=== PATIENT | female | born 1930 | race Caucasian/White ===

== ENCOUNTER 2018-11-18 17:34 | Emergency (ER) | payer MEDICARE ==
[~2018-11-18] VITALS: Ht 172.7 cm; Wt 113.4 kg
[~2018-11-18 17:34] MED LIST: ALPR.5 PO; ALUM-MAG HYDRO360 ML PO; AMLO10 PO; ASPI325EC PO; ASPIRIN; ATEN50; ATEN50 PO; Aranesp40 MCG/11 SC; BENA20; BENA20 PO; BENADRYL; BISACODYL; CALCAVITDA PO; CIPRO; CITA20 PO; CITALOPRAM; DOCU100 PO; FLUO20; FURO40 PO; HYDACE5 PO; HYDR1TAB94 PO; HYDROCODONE; IMODIUM; LASIX; LAVAP17G PO; MAGCHL64ER PO; METO2.5 PO; MILK; Micro-K10 MEQ PO; NAPR375 PO; NAPR500 PO; NAPROXEN; NYST100TC TOP; OMEP20ER PO; OMEPRAZOLE; POTASSIUM; POTCHL10ER PO; POTPHO PO; Prilosec Otc20 MG; Prilosec20 MG PO; RANI150 PO; SUCR1SU PO; TAMS.4ER PO; TEMA30; TEMA30 PO; XANAX
[2018-11-18] MEDS ORDERED: FURO40 PO (18:15)
[2018-11-18 18:16] LABS: BASOPHILS ABSOLUTE AUTO 0.08 K/mm3 (0.00-0.23); BASOPHILS PERCENT AUTO 1 % (0-2); EOSINOPHILS ABSOLUTE AUTO 0.12 K/mm3 (0.00-0.68); EOSINOPHILS PERCENT AUTO 1 % (0-6); Hematocrit 40.2 % (33.0-51.0); Hemoglobin 12.1 g/dL (11.5-16.0); IMMATURE GRAN ABSOLUTE AUTO 0.15 K/mm3 (0.00-0.10); IMMATURE GRAN PERCENT AUTO 1 % (0-1); LYMPHOCYTES ABSOLUTE AUTO 5.36 K/mm3 (0.84-5.20); LYMPHOCYTES PERCENT AUTO 33 % (21-46); MONOCYTES ABSOLUTE AUTO 1.28 K/mm3 (0.16-1.47); MONOCYTES PERCENT AUTO 8 % (4-13); Mean Corpuscular HGB 26.1 pg (26.0-34.0); Mean Corpuscular HGB Conc 30.1 g/dL (31.5-36.5); Mean Corpuscular Volume 87 fL (80-100); NEUTROPHILS ABSOLUTE AUTO 9.04 K/mm3 (1.96-9.15); NEUTROPHILS PERCENT AUTO 57 % (41-73); Platelet Count 280 K/mm3 (150-400); RDW Coefficient Variation 16.4 % (11.7-14.2); RDW Standard Deviation 51.6 fL (35.1-46.3); Red Blood Cell Count 4.64 M/mm3 (3.80-5.20); White Blood Cell Count 16.03 K/mm3 (4.00-11.30)
[2018-11-18] MEDS ORDERED: CETI5 PO (18:16)
[2018-11-18 18:27] LABS: Albumin/Globulin Ratio 0.6 (0.8-1.8); Bilirubin, Total 0.4 mg/dL (0.1-1.0); Bun/Creatinine Ratio 21.8 (12.0-20.0); Calcium, Blood 8.8 mg/dL (8.5-10.1); Creatinine, Blood 1.24 mg/dL (0.40-1.00); Globulin, Blood 5.1 g/dL (2.2-4.0); Potassium, Blood 3.8 mmol/L (3.5-5.5); Total Protein, Blood 8.1 g/dL (6.4-8.2)
[2018-11-18] MEDS ORDERED: ONDA4ODT MM (20:11)
== END 2018-11-18 21:13 | disposition home or self-care (01) ==
LOC: ER 17:34
PROVIDERS: Emergency Medicine
DX: R07.89 Other chest pain (principal); R11.0 Nausea; I12.9 Hypertensive chronic kidney disease with stage 1 through stage 4 chronic kidney disease, or unspecified chronic kidney disease; N18.9 Chronic kidney disease, unspecified; F03.90 Unspecified dementia, unspecified severity, without behavioral disturbance, psychotic disturbance, mood disturbance, and anxiety; F32.9 Major depressive disorder, single episode, unspecified; Z87.11 Personal history of peptic ulcer disease; Z79.899 Other long term (current) drug therapy
CPT/HCPCS: 71045; 80053; 83690; 84484; 85025; 93005; 93010; 99284-25; A9270-GY

== ENCOUNTER 2018-12-24 02:04 | Emergency (ER) | payer MEDICARE ==
[~2018-12-24] VITALS: Ht 160 cm; Wt 90.7 kg
[~2018-12-24 02:04] MED LIST changes: +CETI5 PO; +ONDA4ODT MM
[2018-12-24] MEDS ORDERED: PRED20 PO (02:21)
[2018-12-24 02:47] LABS: BASOPHILS ABSOLUTE AUTO 0.06 K/mm3 (0.00-0.23); BASOPHILS PERCENT AUTO 0 % (0-2); EOSINOPHILS ABSOLUTE AUTO 0.39 K/mm3 (0.00-0.68); EOSINOPHILS PERCENT AUTO 3 % (0-6); Hematocrit 37.9 % (33.0-51.0); Hemoglobin 11.2 g/dL (11.5-16.0); IMMATURE GRAN ABSOLUTE AUTO 0.08 K/mm3 (0.00-0.10); IMMATURE GRAN PERCENT AUTO 1 % (0-1); LYMPHOCYTES ABSOLUTE AUTO 4.64 K/mm3 (0.84-5.20); LYMPHOCYTES PERCENT AUTO 32 % (21-46); MONOCYTES ABSOLUTE AUTO 1.16 K/mm3 (0.16-1.47); MONOCYTES PERCENT AUTO 8 % (4-13); Mean Corpuscular HGB 26.4 pg (26.0-34.0); Mean Corpuscular HGB Conc 29.6 g/dL (31.5-36.5); Mean Corpuscular Volume 89 fL (80-100); Mean Platelet Volume 9.7 fL (9.1-12.4); NEUTROPHILS ABSOLUTE AUTO 8.28 K/mm3 (1.96-9.15); NEUTROPHILS PERCENT AUTO 57 % (41-73); Platelet Count 323 K/mm3 (150-400); RDW Coefficient Variation 16.1 % (11.7-14.2); RDW Standard Deviation 52.7 fL (35.1-46.3); Red Blood Cell Count 4.25 M/mm3 (3.80-5.20); White Blood Cell Count 14.61 K/mm3 (4.00-11.30)
[2018-12-24 03:07] LABS: Alanine Aminotransfer (ALT/SGP 16 U/L (12-78); Albumin, Blood 2.5 g/dL (3.4-5.0); Albumin/Globulin Ratio 0.6 (0.8-1.8); Alk Phos 68 U/L (50-136); Anion Gap 5 mmol/L (6-16); Aspartate Aminotrans (AST/SGOT 17 U/L (12-37); Bilirubin, Total 0.3 mg/dL (0.1-1.0); Blood Urea Nitrogen 26 mg/dL (8-24); Bun/Creatinine Ratio 19.7 (12.0-20.0); CO2, Blood 32 mmol/L (21-32); Calcium, Blood 8.4 mg/dL (8.5-10.1); Chloride, Blood 104 mmol/L (98-108); Creatinine, Blood 1.32 mg/dL (0.40-1.00); Globulin, Blood 4.5 g/dL (2.2-4.0); Glomerular Filtration Rate 40 (60-); Glucose, Blood 104 mg/dL (70-99); Potassium, Blood 4.1 mmol/L (3.5-5.5); Sodium, Blood 141 mmol/L (136-145); Troponin I <0.015 ng/mL (0.000-0.040)
== END 2018-12-24 05:30 | disposition home or self-care (01) ==
LOC: ER 02:04
PROVIDERS: Emergency Medicine
DX: I48.0 Paroxysmal atrial fibrillation (principal); I10 Essential (primary) hypertension; F32.9 Major depressive disorder, single episode, unspecified; F03.90 Unspecified dementia, unspecified severity, without behavioral disturbance, psychotic disturbance, mood disturbance, and anxiety; R60.0 Localized edema; Z88.5 Allergy status to narcotic agent; Z79.899 Other long term (current) drug therapy; Z79.52 Long term (current) use of systemic steroids
CPT/HCPCS: 36415; 71046; 80053; 84484; 85025; 93005; 93010; 99285-25

== ENCOUNTER 2019-01-10 22:27 | Observation (INO) | payer MEDICARE ==
[~2019-01-10] VITALS: Ht 157.5 cm; Wt 83.2 kg
[~2019-01-10 22:27] MED LIST changes: +MAGCHL64ER; -MAGCHL64ER PO; +PRED20 PO
[2019-01-10] MEDS ORDERED: MIRT15 PO (22:41)
[2019-01-10] MEDS ORDERED: OMEPRAZOLE20 MG PO (22:42)
[2019-01-10] MEDS ORDERED: Naproxen375 MG PO (22:42)
[2019-01-10] MEDS ORDERED: CEPH500 PO (22:44)
[2019-01-10] MEDS ORDERED: Nystop60 GM TOP (23:01)
[2019-01-10 23:59] LABS: BASOPHILS PERCENT AUTO 1 % (0-2); EOSINOPHILS ABSOLUTE AUTO 0.83 K/mm3 (0.00-0.68); EOSINOPHILS PERCENT AUTO 4 % (0-6); Hematocrit 33.1 % (33.0-51.0); Hemoglobin 10.4 g/dL (11.5-16.0); IMMATURE GRAN ABSOLUTE AUTO 0.17 K/mm3 (0.00-0.10); IMMATURE GRAN PERCENT AUTO 1 % (0-1); LYMPHOCYTES ABSOLUTE AUTO 6.94 K/mm3 (0.84-5.20); LYMPHOCYTES PERCENT AUTO 33 % (21-46); MONOCYTES ABSOLUTE AUTO 1.79 K/mm3 (0.16-1.47); MONOCYTES PERCENT AUTO 9 % (4-13); Mean Corpuscular HGB 26.4 pg (26.0-34.0); Mean Corpuscular HGB Conc 31.4 g/dL (31.5-36.5); Mean Corpuscular Volume 84 fL (80-100); Mean Platelet Volume 10.2 fL (9.1-12.4); NEUTROPHILS ABSOLUTE AUTO 11.25 K/mm3 (1.96-9.15); NEUTROPHILS PERCENT AUTO 53 % (41-73); Platelet Count 387 K/mm3 (150-400); RDW Coefficient Variation 16.8 % (11.7-14.2); RDW Standard Deviation 51.8 fL (35.1-46.3); Red Blood Cell Count 3.94 M/mm3 (3.80-5.20); White Blood Cell Count 21.08 K/mm3 (4.00-11.30)
[2019-01-11 00:16] LABS: Albumin, Blood 1.9 g/dL (3.4-5.0); Albumin/Globulin Ratio 0.4 (0.8-1.8); Bilirubin, Total 0.5 mg/dL (0.1-1.0); Bun/Creatinine Ratio 19.9 (12.0-20.0); Calcium, Blood 8.2 mg/dL (8.5-10.1); Creatinine, Blood 2.61 mg/dL (0.40-1.00); Potassium, Blood 4.7 mmol/L (3.5-5.5); Total Protein, Blood 6.9 g/dL (6.4-8.2)
--- NOTE | 2019-01-11 05:11 | NUR ---
CUSTOMER OPERATIONS REPRESENTATIVE SUMMARY NEW ADMIT FROM THE ED TONIGHT. PT ADMITTED FROM [facility] WITH A GI BLEED. PT HAS HAD MULTIPLE MAROON/RED COLORED SOFT STOOLS SINCE ARRIVING TO MEDICAL FLOOR. PT IS ALSO EXTREMELY EXCORIATED ON HER DANIEL AREA. THE AREA IS VERY PAINFUL FOR THE PT WHEN THE AREA IS CLEANED. PT YELLS OUT VERY LOUDLY AND SOMETIMES GETS ANGRY WITH STAFF WHEN SHE NEEDS CLEANING. PT ALSO HAS SCATTERED SCABBED/OPEN AREAS ON HER HIPS AND BUTTOCKS. PHOTOS WERE TAKEN AND DOCUMENTED IN THE ER. PT HAS RESTED FAIRLY WELL. BED ALARM ON FOR SAFETY PT IS FORGETFUL/CONFUSED AT TIMES. VSS, WILL CONTINUE TO MONITOR.
[2019-01-11 07:34] LABS: BASOPHILS PERCENT AUTO 1 % (0-2); EOSINOPHILS ABSOLUTE AUTO 0.22 K/mm3 (0.00-0.68); EOSINOPHILS PERCENT AUTO 1 % (0-6); Hematocrit 33.2 % (33.0-51.0); Hemoglobin 10.3 g/dL (11.5-16.0); IMMATURE GRAN ABSOLUTE AUTO 0.12 K/mm3 (0.00-0.10); IMMATURE GRAN PERCENT AUTO 1 % (0-1); LYMPHOCYTES ABSOLUTE AUTO 5.01 K/mm3 (0.84-5.20); LYMPHOCYTES PERCENT AUTO 29 % (21-46); MONOCYTES PERCENT AUTO 6 % (4-13); Mean Corpuscular HGB 25.9 pg (26.0-34.0); Mean Corpuscular Volume 84 fL (80-100); Mean Platelet Volume 9.9 fL (9.1-12.4); NEUTROPHILS ABSOLUTE AUTO 11.03 K/mm3 (1.96-9.15); NEUTROPHILS PERCENT AUTO 63 % (41-73); Platelet Count 355 K/mm3 (150-400); RDW Standard Deviation 51.8 fL (35.1-46.3); Red Blood Cell Count 3.97 M/mm3 (3.80-5.20); White Blood Cell Count 17.48 K/mm3 (4.00-11.30)
[2019-01-11 07:52] LABS: Bun/Creatinine Ratio 21.2 (12.0-20.0); Creatinine, Blood 2.55 mg/dL (0.40-1.00); Potassium, Blood 5.3 mmol/L (3.5-5.5)
--- NOTE | 2019-01-11 18:32 | NUR ---
NO ACUTE CHANGES NOTED. PATIENT CONTINUES TO HAVE BOWEL MOVEMENTS WITH BLOOD NOTED. PATIENT COMPLAINS OF BURNING DISCOMFORT WHEN BEING CHANGED DUE TO SEVERE EXCORIATION. NO OTHER COMPLAINTS AT THIS TIME. WILL CONTINUE TO MONITOR FOR CHANGES.
--- NOTE | 2019-01-12 03:58 | NUR ---
SHIFT SUMMARY NYSTATIN CREAM APPLIED THIS SHIFT, ORDERED. PT'S DANIEL AREA IS EXCORIATED AND PAINFUL DURING CHANGES. PT WAS REPOSITIONED Q 2 HRS. I DID SEE A NOTE THAT THE PT SHOULD BE COMFORT CARE, BUT I DID NOT FIND AN ORDER. IV NS FLUID WAS NOT DC'D IN THE EMAR, ALTHOUGH I WAS TOLD IN HANDOFF IT IS DC'D. I DID FIND A DR'S NOTE REGARDING ENDING IV FLUIDS. PT RESTED THROUGHOUT SHIFT. SHE IS FROM [facility], PLAN IS FOR HER TO RETURN THERE.
[2019-01-12 05:25] LABS: BASOPHILS ABSOLUTE AUTO 0.08 K/mm3 (0.00-0.23); BASOPHILS PERCENT AUTO 1 % (0-2); EOSINOPHILS ABSOLUTE AUTO 0.52 K/mm3 (0.00-0.68); EOSINOPHILS PERCENT AUTO 4 % (0-6); Hematocrit 31.1 % (33.0-51.0); Hemoglobin 9.4 g/dL (11.5-16.0); IMMATURE GRAN ABSOLUTE AUTO 0.11 K/mm3 (0.00-0.10); IMMATURE GRAN PERCENT AUTO 1 % (0-1); LYMPHOCYTES ABSOLUTE AUTO 5.14 K/mm3 (0.84-5.20); LYMPHOCYTES PERCENT AUTO 40 % (21-46); MONOCYTES PERCENT AUTO 7 % (4-13); Mean Corpuscular HGB 25.7 pg (26.0-34.0); Mean Corpuscular HGB Conc 30.2 g/dL (31.5-36.5); Mean Corpuscular Volume 85 fL (80-100); Mean Platelet Volume 10.2 fL (9.1-12.4); NEUTROPHILS ABSOLUTE AUTO 6.04 K/mm3 (1.96-9.15); NEUTROPHILS PERCENT AUTO 47 % (41-73); Platelet Count 372 K/mm3 (150-400); RDW Coefficient Variation 17.1 % (11.7-14.2); RDW Standard Deviation 52.9 fL (35.1-46.3); Red Blood Cell Count 3.66 M/mm3 (3.80-5.20); White Blood Cell Count 12.79 K/mm3 (4.00-11.30)
--- NOTE | 2019-01-12 15:21 | NUR ---
DISCHARGE NOTE- PT WAS DISCHARGED TO [facility]. PT TAKEN BY GURNEY TRANSPORT TO [facility]. PT HAD PULLED HER OWN IV THE DAY BEFORE. ATTENDS CLEAN AND DRY, FREQUENT REPOSITIONING WAS PERFORMED T/O THE DAY. NYSTATIN CREAM APPLIED TO EXCORIATIONS ON PT GROIN AREA WELL UNDER THE LEFT BREAST AFTER BED BATH WAS COMPLETED.
== END 2019-01-12 14:10 | disposition home or self-care (01) ==
LOC: ER 22:27 → MEDS 22:28 → ER 23:15 → MEDS 01-11 00:25 → ENPENDDIS 01-12 08:29 → MEDS 01-12 14:10
PROVIDERS: Emergency Medicine; Hospitalist; Nurse Practitioner Acute Care; ADMIT Internal Medicine
DX: K92.1 Melena (principal); B37.3 Candidiasis of vulva and vagina; N17.9 Acute kidney failure, unspecified; I12.9 Hypertensive chronic kidney disease with stage 1 through stage 4 chronic kidney disease, or unspecified chronic kidney disease; N18.9 Chronic kidney disease, unspecified; F03.90 Unspecified dementia, unspecified severity, without behavioral disturbance, psychotic disturbance, mood disturbance, and anxiety; F32.9 Major depressive disorder, single episode, unspecified; D72.829 Elevated white blood cell count, unspecified; R53.1 Weakness; Z88.5 Allergy status to narcotic agent; Z79.899 Other long term (current) drug therapy
CPT/HCPCS: 36415; 80048; 80053; 83690; 85025; 86850; 86900; 86901; 96365; 97162; 97530; 99284-25; C9113; J7030

== ENCOUNTER 2019-05-17 15:42 | Emergency (ER) | payer MEDICARE ==
[~2019-05-17] VITALS: Ht 157.5 cm; Wt 68.0 kg
[~2019-05-17 15:42] MED LIST changes: +CEPH500 PO; +MIRT15 PO; +Naproxen375 MG PO; +Nystop60 GM TOP; +OMEPRAZOLE20 MG PO
[2019-05-17] MEDS ORDERED: FERSU300 (16:27)
[2019-05-17] MEDS ORDERED: HYDURE500 PO (16:27)
[2019-05-17] MEDS ORDERED: Hydroxyzine HCl50 MG (16:28)
== END 2019-05-17 20:00 | disposition home or self-care (01) ==
LOC: ER 15:42
DX: F03.90 Unspecified dementia, unspecified severity, without behavioral disturbance, psychotic disturbance, mood disturbance, and anxiety (principal); R63.4 Abnormal weight loss; F32.9 Major depressive disorder, single episode, unspecified; I10 Essential (primary) hypertension
CPT/HCPCS: 82272; 99284-25

== ENCOUNTER → 2019-07-12 | Outpatient (CLI) | payer MEDICARE ==
[~2019-07-12] MED LIST changes: +FERSU300; +HYDURE500 PO; +Hydroxyzine HCl50 MG
[2019-07-12 12:22] LABS: BASOPHILS ABSOLUTE AUTO 0.08 K/mm3 (0.00-0.23); BASOPHILS PERCENT AUTO 1 % (0-2); EOSINOPHILS ABSOLUTE AUTO 0.39 K/mm3 (0.00-0.68); EOSINOPHILS PERCENT AUTO 3 % (0-6); Hematocrit 37.7 % (33.0-51.0); Hemoglobin 11.9 g/dL (11.5-16.0); IMMATURE GRAN ABSOLUTE AUTO 0.04 K/mm3 (0.00-0.10); IMMATURE GRAN PERCENT AUTO 0 % (0-1); LYMPHOCYTES ABSOLUTE AUTO 4.03 K/mm3 (0.84-5.20); LYMPHOCYTES PERCENT AUTO 33 % (21-46); MONOCYTES ABSOLUTE AUTO 1.04 K/mm3 (0.16-1.47); MONOCYTES PERCENT AUTO 8 % (4-13); Mean Corpuscular HGB 31.5 pg (26.0-34.0); Mean Corpuscular HGB Conc 31.6 g/dL (31.5-36.5); Mean Corpuscular Volume 100 fL (80-100); Mean Platelet Volume 11.2 fL (9.1-12.4); NEUTROPHILS ABSOLUTE AUTO 6.76 K/mm3 (1.96-9.15); NEUTROPHILS PERCENT AUTO 55 % (41-73); Platelet Count 247 K/mm3 (150-400); RDW Coefficient Variation 12.5 % (11.7-14.2); RDW Standard Deviation 45.2 fL (35.1-46.3); Red Blood Cell Count 3.78 M/mm3 (3.80-5.20); White Blood Cell Count 12.34 K/mm3 (4.00-11.30)
== END | disposition home or self-care (01) ==
LOC: LAB SHORT 09:23 → LAB 09:23
PROVIDERS: Family Medicine
DX: D47.1 Chronic myeloproliferative disease (principal)
CPT/HCPCS: 85025

== ENCOUNTER → 2019-08-17 | Outpatient (CLI) | payer MEDICARE ==
[2019-08-17 12:28] LABS: BASOPHILS ABSOLUTE AUTO 0.07 K/mm3 (0.00-0.23); BASOPHILS PERCENT AUTO 1 % (0-2); EOSINOPHILS ABSOLUTE AUTO 0.34 K/mm3 (0.00-0.68); EOSINOPHILS PERCENT AUTO 3 % (0-6); Hematocrit 40.5 % (33.0-51.0); Hemoglobin 12.5 g/dL (11.5-16.0); IMMATURE GRAN ABSOLUTE AUTO 0.08 K/mm3 (0.00-0.10); IMMATURE GRAN PERCENT AUTO 1 % (0-1); LYMPHOCYTES PERCENT AUTO 32 % (21-46); MONOCYTES ABSOLUTE AUTO 1.06 K/mm3 (0.16-1.47); MONOCYTES PERCENT AUTO 9 % (4-13); Mean Corpuscular HGB 30.9 pg (26.0-34.0); Mean Corpuscular HGB Conc 30.9 g/dL (31.5-36.5); Mean Corpuscular Volume 100 fL (80-100); Mean Platelet Volume 11.7 fL (9.1-12.4); NEUTROPHILS ABSOLUTE AUTO 6.42 K/mm3 (1.96-9.15); NEUTROPHILS PERCENT AUTO 55 % (41-73); Platelet Count 255 K/mm3 (150-400); RDW Coefficient Variation 13.2 % (11.7-14.2); RDW Standard Deviation 48.7 fL (35.1-46.3); Red Blood Cell Count 4.04 M/mm3 (3.80-5.20); White Blood Cell Count 11.67 K/mm3 (4.00-11.30)
== END | disposition home or self-care (01) ==
LOC: LAB 11:13 → LAB SHORT 11:13
PROVIDERS: Registered Nurse Oncology
DX: D47.1 Chronic myeloproliferative disease (principal)
CPT/HCPCS: 85025

== ENCOUNTER 2020-03-15 18:01 | Emergency (ER) | payer MEDICARE ==
[~2020-03-15] VITALS: Ht 157.5 cm; Wt 63.5 kg
== END 2020-03-15 20:00 | disposition home or self-care (01) ==
LOC: ER 18:01
DX: M54.2 Cervicalgia (principal); I10 Essential (primary) hypertension; Z88.5 Allergy status to narcotic agent; Z87.891 Personal history of nicotine dependence; Z79.899 Other long term (current) drug therapy; W05.0XXA Fall from non-moving wheelchair, initial encounter
CPT/HCPCS: 99283

== ENCOUNTER 2020-08-11 18:09 | Emergency (ER) | payer MEDICARE ==
[~2020-08-11] VITALS: Ht 160 cm; Wt 108.9 kg
[2020-08-11 19:34] LABS: BASOPHILS ABSOLUTE AUTO 0.05 K/mm3 (0.00-0.23); BASOPHILS PERCENT AUTO 0 % (0-2); EOSINOPHILS ABSOLUTE AUTO 0.07 K/mm3 (0.00-0.68); EOSINOPHILS PERCENT AUTO 1 % (0-6); Hematocrit 39.3 % (33.0-51.0); Hemoglobin 12.7 g/dL (11.5-16.0); IMMATURE GRAN PERCENT AUTO 1 % (0-1); LYMPHOCYTES ABSOLUTE AUTO 2.71 K/mm3 (0.84-5.20); LYMPHOCYTES PERCENT AUTO 19 % (21-46); MONOCYTES ABSOLUTE AUTO 1.04 K/mm3 (0.16-1.47); MONOCYTES PERCENT AUTO 7 % (4-13); Mean Corpuscular HGB 31.4 pg (26.0-34.0); Mean Corpuscular HGB Conc 32.3 g/dL (31.5-36.5); Mean Corpuscular Volume 97 fL (80-100); NEUTROPHILS ABSOLUTE AUTO 10.54 K/mm3 (1.96-9.15); NEUTROPHILS PERCENT AUTO 72 % (41-73); Platelet Count 343 K/mm3 (150-400); RDW Coefficient Variation 13.9 % (11.7-14.2); RDW Standard Deviation 49.2 fL (35.1-46.3); Red Blood Cell Count 4.04 M/mm3 (3.80-5.20); White Blood Cell Count 14.61 K/mm3 (4.00-11.30)
[2020-08-11] MEDS ORDERED: ATOR20 PO (19:38)
[2020-08-11] MEDS ORDERED: Prednisone10 MG PO (19:39)
[2020-08-11] MEDS ORDERED: MIRT15 PO (19:39)
[2020-08-11] MEDS ORDERED: ACET500 PO (19:40)
[2020-08-11] MEDS ORDERED: BISA10S (19:40)
[2020-08-11 19:49] LABS: Albumin, Blood 2.5 g/dL (3.4-5.0); Albumin/Globulin Ratio 0.5 (0.8-1.8); Bilirubin, Total 0.5 mg/dL (0.1-1.0); Bun/Creatinine Ratio 16.9 (12.0-20.0); Calcium, Blood 8.6 mg/dL (8.5-10.1); Creatinine, Blood 1.36 mg/dL (0.40-1.00); Globulin, Blood 4.7 g/dL (2.2-4.0); Potassium, Blood 4.6 mmol/L (3.5-5.5); Total Protein, Blood 7.2 g/dL (6.4-8.2)
[2020-08-11 20:44] LABS: Source, Urine Catheter
[2020-08-11 20:47] LABS: Bilirubin, Urine Neg (Neg); Blood, Urine 4+ (Neg); Glucose Qualitative, Urine Neg (Neg); Ketones, Urine Neg (Neg); Leukocyte Esterase, Urine 3+ (Neg); Nitrite, Urine Pos (Neg); Protein, Urine 3+ (Neg); Urobilinogen, Urine NORM (Normal)
[2020-08-11 20:55] LABS: Color, Urine Yellow (P-Yellow)
[2020-08-11 20:59] LABS: Appearance, Urine Cloudy (Clear); Bacteria Many /hpf; Red Blood Cells, Urine 50-100 /hpf (0-2); Squamous Epithelial Cells Rare /hpf (Few); White Blood Cells, Urine TNTC /hpf (0-5)
[2020-08-11] MEDS ORDERED: CEFD300 PO (21:04)
[2020-09-30] MEDS ORDERED: LORAZEPAM2 MG/1 M1 PO (11:04)
[2020-09-30] MEDS ORDERED: ONDA4ODT MM (11:04)
[2020-09-30] MEDS ORDERED: TRANSDERM-SCOP1 EAC1 TD (11:04)
[2020-09-30] MEDS ORDERED: MORP20L PO (11:04)
== END 2020-08-11 22:24 | disposition home or self-care (01) ==
LOC: ER 18:09
PROVIDERS: Student in an Organized Health Care Education/Training Program
DX: N10 Acute pyelonephritis (principal); I10 Essential (primary) hypertension; Z88.5 Allergy status to narcotic agent; Z79.899 Other long term (current) drug therapy
CPT/HCPCS: 36415; 51701; 80053; 81001; 85025; 87077; 87086; 87186; 93005; 93010; 96365-59; 99284-25; J0696

== ENCOUNTER → 2020-09-09 | Outpatient (CLI) | payer MEDICARE ==
[~2020-09-09] MED LIST changes: +ACET500 PO; +ATOR20 PO; +BISA10S; +CEFD300 PO; +LORAZEPAM2 MG/1 M1 PO; +MORP20L PO; +Prednisone10 MG PO; +TRANSDERM-SCOP1 EAC1 TD
[2020-09-09 14:10] LABS: BASOPHILS ABSOLUTE AUTO 0.08 K/mm3 (0.00-0.23); BASOPHILS PERCENT AUTO 1 % (0-2); EOSINOPHILS ABSOLUTE AUTO 0.15 K/mm3 (0.00-0.68); EOSINOPHILS PERCENT AUTO 1 % (0-6); Hematocrit 44.8 % (33.0-51.0); Hemoglobin 14.1 g/dL (11.5-16.0); IMMATURE GRAN ABSOLUTE AUTO 0.06 K/mm3 (0.00-0.10); IMMATURE GRAN PERCENT AUTO 1 % (0-1); LYMPHOCYTES ABSOLUTE AUTO 2.18 K/mm3 (0.84-5.20); LYMPHOCYTES PERCENT AUTO 20 % (21-46); MONOCYTES ABSOLUTE AUTO 1.05 K/mm3 (0.16-1.47); MONOCYTES PERCENT AUTO 10 % (4-13); Mean Corpuscular HGB 31.3 pg (26.0-34.0); Mean Corpuscular HGB Conc 31.5 g/dL (31.5-36.5); Mean Corpuscular Volume 100 fL (80-100); Mean Platelet Volume 11.1 fL (9.1-12.4); NEUTROPHILS PERCENT AUTO 68 % (41-73); Platelet Count 320 K/mm3 (150-400); RDW Coefficient Variation 14.2 % (11.7-14.2); RDW Standard Deviation 52.1 fL (35.1-46.3); White Blood Cell Count 11.02 K/mm3 (4.00-11.30)
== END | disposition home or self-care (01) ==
LOC: LAB SHORT 10:40 → LAB 10:40
PROVIDERS: Family Medicine
DX: D47.1 Chronic myeloproliferative disease (principal)
CPT/HCPCS: 85025

== ENCOUNTER 2020-09-30 09:23 | Emergency (ER) | payer MEDICARE | END 2020-09-30 11:33 | disposition home or self-care (01) | LOC: ER 09:23 | DX: I63.9 Cerebral infarction, unspecified (principal); I10 Essential (primary) hypertension; Z51.5 Encounter for palliative care; Z88.5 Allergy status to narcotic agent ==